=== PATIENT | female | born 1995 | race Two or more races ===

== ENCOUNTER 2024-06-06 14:44 | Emergency (ER) | payer BC, OTHER ==
[~2024-06-06] VITALS: Ht 157.5 cm; Wt 74.3 kg
[2024-06-06 16:00] VITALS: BP 138/83; PULSE 101; RESP 16; TEMP 99.1; O2SAT 98
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
[2024-06-06] MEDS: ACETAMINOPHEN 500 MG TAB or CAP PO ONE (16:47)
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
[2024-06-06] MEDS ORDERED: CEPH500C PO (17:14)
[2024-06-06] MEDS ORDERED: ACET-1304 PO (17:14)
== END 2024-06-06 17:19 | disposition home or self-care (01) ==
LOC: ER 14:44
DX: S39.012A Strain of muscle, fascia and tendon of lower back, initial encounter (principal); S50.12XA Contusion of left forearm, initial encounter; S70.211A Abrasion, right hip, initial encounter; S06.9X1A Unspecified intracranial injury with loss of consciousness of 30 minutes or less, initial encounter; Z79.899 Other long term (current) drug therapy; W18.39XA Other fall on same level, initial encounter; Y93.89 Activity, other specified; Y92.89 Other specified places as the place of occurrence of the external cause; Y99.8 Other external cause status
CPT/HCPCS: 70450; 72100; 73090; 73502